=== PATIENT | male | born 1955 | race Two or more races ===

== ENCOUNTER 2022-09-19 02:49 | Inpatient (IN) | payer MEDICARE, OTHER ==
[~2022-09-19] VITALS: Ht 170.2 cm; Wt 68.0 kg
[2022-09-19] VITALS (8 sets, daily range): BP systolic 107; BP diastolic 82; TEMP 99.2; O2SAT 94–100
--- NOTE | 2022-09-19 02:56 | NUR ---
[id number] FROM HOME C/O SOB, COUGH CONGESTION SINCE 99. 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 HX ASTHMA. AAOX4. ATTACHED TO THE MONITOR.
--- NOTE | 2022-09-19 03:00 | NUR ---
ESTABLISHED IV LINE AT L AC, 20G. BLOOD DRAWN AND HANDED IT TO THE PHLEB AT BEDSIDE.
[2022-09-19] MEDS ORDERED: methylPREDNISolone SOD SUCC 125 MG/2ML VIAL ONE (03:18)
[2022-09-19] MEDS ORDERED: IPRATROPIUM NEB FS 0.5 MG/2.5 ML AMPUL.NEB ONE ×2 (03:21→05:02)
[2022-09-19] MEDS ORDERED: ALBUTEROL FS 2.5 MG/3 ML VIAL.NEB ONE ×2 (03:21→05:02)
[2022-09-19] MEDS ORDERED: IPRATROPIUM NEB FS 0.5 MG/2.5 ML AMPUL.NEB NEB ONE ×2 (03:30→05:00)
[2022-09-19] MEDS ORDERED: ALBUTEROL FS 2.5 MG/3 ML VIAL.NEB NEB ONE ×2 (03:30→05:00)
[2022-09-19] MEDS ORDERED: methylPREDNISolone SOD SUCC 125 MG/2ML VIAL IV ONE (03:30)
[2022-09-19] MEDS ORDERED: IV NS 0.9% 500 ML IV ONE (03:30)
[2022-09-19 03:40] LABS: BASOPHILS # (AUTO) 0.1 K/uL (0.0-0.2); BASOPHILS % (AUTO) 0.5 % (0.0-2.0); EOSINOPHILS % (AUTO) 1.9 % (0.0-6.0); HEMATOCRIT 45 % (39-51); LYMPHOCYTES # (AUTO) 2.6 K/uL (0.8-4.8); LYMPHOCYTES % (AUTO) 20.8 % (20.0-44.0); MEAN CORPUSCULAR HGB CONC 33 g/dl (31.0-36.0); MEAN CORPUSCULAR VOLUME 94 fL (80-96); MONOCYTES # (AUTO) 0.7 K/uL (0.1-1.30); MONOCYTES % (AUTO) 5.4 % (2.0-12.0); NEUTROPHILS # (AUTO) 8.7 K/uL (1.8-8.9); NEUTROPHILS % (AUTO) 71.4 % (43.0-81.0); PLATELET COUNT (AUTO) 240 K/uL (150-450); RED BLOOD CELL COUNT(AUTO) 4.79 MIL/uL (4.5-6.0); WHITE BLOOD COUNT (AUTO) 12.2 K/uL (4.3-11.0)
[2022-09-19 03:52] LABS: ALANINE AMINOTRANSFERASE 17 U/L (12-78); ALBUMIN 3.6 g/dL (3.4-5.0); ALKALINE PHOSPHATASE 112 U/L (46-116); ASPARTATE AMINOTRANSFERASE 11 U/L (15-37); BILIRUBIN,DIRECT 0.1 mg/dL (0.0-0.2); BILIRUBIN,TOTAL 0.3 mg/dL (0.2-1.0); CALCIUM, SERUM 9.4 mg/dL (8.5-10.1); CARBON DIOXIDE 27 mmol/L (21-32); CHLORIDE 107 mmol/L (98-107); CREATININE 0.8 mg/dL (0.6-1.3); GLUCOSE 128 mg/dL (74-106); POTASSIUM 3.1 mmol/L (3.5-5.1); SODIUM SERUM 141 mmol/L (136-145); TOTAL PROTEIN, SERUM 6.8 g/dL (6.4-8.2); UREA NITROGEN, BLOOD 7 mg/dL (7-18)
--- NOTE | 2022-09-19 04:50 | NUR ---
COVID SWAB COLLECTED AND SENT TO LAB.
[2022-09-19] MEDS ORDERED: CEFTRIAXONE 1GM BAG (ER ONLY) 50 ML IV ONE ×2 (04:51→05:00)
[2022-09-19] MEDS ORDERED: AZITHROMYCIN 500 MG VIAL ONE (04:51)
[2022-09-19] MEDS ORDERED: MAG HYDROX/AL HYDROX/SIMETH 30 ML UDC PO PRN (05:00)
[2022-09-19] MEDS ORDERED: AZITHROMYCIN 500 MG in IV D5W 250 ML IV ONE (05:00)
[2022-09-19] MEDS ORDERED: Z GUARD REMEDY 4 OZ OINT TP PRN (05:00)
[2022-09-19] MEDS ORDERED: TEMAZEPAM 15 MG CAPSULE PO PRN (05:00)
[2022-09-19] MEDS ORDERED: MAGNESIUM HYDROXIDE 30 ML UDC PO PRN (05:00)
[2022-09-19] MEDS ORDERED: ACETAMINOPHEN 325 MG TABLET PO PRN (05:00)
[2022-09-19] MEDS ORDERED: ONDANSETRON HCL/PF 4 MG/2 ML VIAL IVP PRN (05:00)
[2022-09-19] MEDS ORDERED: ALBUTEROL FS 2.5 MG/3 ML VIAL.NEB NEB PRN (05:00)
[2022-09-19] MEDS ORDERED: IPRATROPIUM NEB FS 0.5 MG/2.5 ML AMPUL.NEB NEB PRN (05:00)
[2022-09-19] MEDS ORDERED: IOHEXOL-350 100 ML VIAL IV ONE (06:11)
[2022-09-19] MEDS ORDERED: CT SWABBABLE VALVE TRANS SET 1 EA INFUS.SET MC ONE (06:11)
[2022-09-19] MEDS ORDERED: IV NS 0.9% 250 ML IV ONE (06:11)
--- NOTE | 2022-09-19 06:25 | NUR ---
PATIENT TAKEN TO CT [facility].
[2022-09-19] MEDS ORDERED: dexaMETHasone SOD PHOSPHATE 10 MG/ML VIAL IV SCH (06:41)
--- NOTE | 2022-09-19 06:43 | NUR ---
PT CAME BACK FROM CT.
[2022-09-19] MEDS ORDERED: PANTOPRAZOLE 40 MG TABLET.DR PO SCH (07:30)
--- NOTE | 2022-09-19 07:32 | NUR ---
GOT BED 307-2 ADMITTING INFORMED.
[2022-09-19] MEDS ORDERED: ALBU8.5H8 IH (07:36)
[2022-09-19] MEDS ORDERED: MULT-213 PO (07:36)
[2022-09-19] MEDS ORDERED: OMEP20CA15 PO (07:36)
[2022-09-19] MEDS ORDERED: TIOT18CA3 IH (07:36)
[2022-09-19] MEDS ORDERED: GABA300C PO (07:36)
[2022-09-19] MEDS ORDERED: OMEG1CAP PO (07:36)
[2022-09-19] MEDS ORDERED: CHOL100043 PO (07:36)
[2022-09-19] MEDS ORDERED: TRAM50TA2 PO (07:36)
[2022-09-19] MEDS ORDERED: ATOR20TA PO (07:36)
[2022-09-19] MEDS ORDERED: OXYC10TA59 PO (07:36)
--- NOTE | 2022-09-19 07:43 | NUR ---
TRIED TO GIVE REPORT, FLOOR NURSE STILL GETTING REPORT FROM TOOL AND DIE MAKER LEVEL FIVE
--- NOTE | 2022-09-19 07:49 | NUR ---
BED REPORT GIVEN TO HANNAH LOVELACE AT [id number]
--- NOTE | 2022-09-19 08:10 | NUR ---
PT TRANSFERRED TO TELE FLOOR WITH ACLS PROTOCOLS IN PLACE
[2022-09-19] MEDS: HYDROCODONE/APAP 5/325MG TABLET PO PRN ×2 (09:04→17:43)
[2022-09-19] MEDS: POTASSIUM CHLORIDE 20 MEQ TAB.PRT.SR PO SCH ×2 (09:06→10:51)
--- NOTE | 2022-09-19 10:45 | NUR ---
FLORICULTURE PROFESSOR NOTE RECEIVED PT FROM ER VIA JENN. REPORT GIVEN BY JASBIR. PATIENT IS A/O X4, ABLE TO MAKE NEEDS KNOWN. PT ORIENTED TO ROOM AND HOW TO USE THE CALL LIGHT. ON ROOM AIR, BREATHING EVENLY AND UNLABORED. NO S/S OF SOB OR DISTRESS NOTED. ALL BELONGINGS ACCOUNTED FOR, BELONGING SHEET SIGNED. IV ACCESS ON LAC #20G SL, INTACT AND PATENT, FLUSHING WELL. VITAL SIGNS TAKEN FOLLOWS: BP 138/88, HR 98, RR 15, SPO2 97%, TEMP 98.1. SKIN ASSESSMENT DONE. BOWEL SOUNDS PRESENT, PT COMPLAINS OF GENERALIZED PAIN, PAIN MEDICATION GIVEN. SAFTEY PRECAUTION IN PLACE: BED IN LOWEST LOCKED POSITION, SIDE RAILS UP X2, CALL LIGHT WITHIN REACH. WILL CONTINUE TO MONITOR. Addendum: 09/19/22 at 1049 by MARILYN SHAH RN RN NOTE PT IS ON OXYGEN 2LPM VIA NASAL CANNULA.
--- NOTE | 2022-09-19 18:12 | NUR ---
CUSTOMER CARE AGENT NOTE 307-2 RECEIVED PORDER FOR DISCHARGE. PATIENT A/OX4, ABLE TO MAKE NEEDS KNOWN. STABLE ON ROOM AIR, NO SOB OR S/S OF DISTRESS NOTED. DISCHARGE INSTRUCTION GIVEN, PT VERBALIZED UNDERSTANDING. ALL BELONGINGS ACCOUNTED FOR, BELONGING SHEET SIGNED. PT DENIES ANY PAIN OR DISCOMFORT AT THIS TIME. IV ACCESS REMOVED, CATHETER TIP INTACT. PRESSURE DRESSING APPLIED. EXIT CARE FOLDER GIVEN TO PATIENT. PATIENT LEFT IN STABLE CONDITION BY HIMSELF VIA TAXI.
[2022-09-20] MEDS ORDERED: AZITHROMYCIN 500 MG in IV D5W 250 ML IV SCH (05:00)
[2022-09-20] MEDS ORDERED: CEFTRIAXONE 1 G in IV D5W 50 ML IV SCH (06:00)
== END 2022-09-19 18:00 | disposition home or self-care (01) | DRG 189 ==
LOC: ER 02:51 → TELE 07:39
PROVIDERS: ADMIT Nurse Practitioner Acute Care; ATTEND Nurse Practitioner Acute Care
DX: J96.01 Acute respiratory failure with hypoxia (principal); J98.11 Atelectasis; J45.909 Unspecified asthma, uncomplicated; E87.6 Hypokalemia; Z92.21 Personal history of antineoplastic chemotherapy; Z92.3 Personal history of irradiation; Z85.89 Personal history of malignant neoplasm of other organs and systems; K22.89 Other specified disease of esophagus; K44.9 Diaphragmatic hernia without obstruction or gangrene; Z20.822 Contact with and (suspected) exposure to COVID-19
CPT/HCPCS: 36415; 71045-TC; 80048-TC; 80076-TC; 83605-TC; 84484-TC; 85025-TC; 85378-TC; 87040-TC; 94799-TC; A4223; C9803; G0378; J0456; J0696; J1100; J2930; J7040; J7050; J7060; Q9967